=== PATIENT | female | born 1960 | race Caucasian/White ===

== ENCOUNTER 2016-08-28 21:33 | Emergency (ER) | payer OTHER ==
[2016-08-28 22:22] LABS: HEMOGLOBIN 13.8 gm/dl (12.3-15.3); RED BLOOD COUNT 4.78 M/UL (4.00-5.10); WHITE BLOOD COUNT 6.5 K/UL (4.5-11.0)
[2016-08-28 23:00] LABS: BUN/CREATININE RATIO 20 (0-10)
== END 2016-08-29 03:01 | disposition home or self-care (01) ==
LOC: ER1 21:33
PROVIDERS: Student in an Organized Health Care Education/Training Program
DX: I48.92 Unspecified atrial flutter (principal); E03.9 Hypothyroidism, unspecified; I10 Essential (primary) hypertension; E11.9 Type 2 diabetes mellitus without complications; E78.5 Hyperlipidemia, unspecified; I48.91 Unspecified atrial fibrillation; Z79.84 Long term (current) use of oral hypoglycemic drugs; Z87.891 Personal history of nicotine dependence
CPT/HCPCS: 36415; 71010; 80053; 82550; 82553; 83874; 84443; 84484; 85025; 85610; 85730; 93005; 96374; 99285

== ENCOUNTER → 2020-07-19 | Outpatient (CLI) | payer OTHER | LOC: EXRD 09:45 | DX: R94.5 Abnormal results of liver function studies (principal); R16.0 Hepatomegaly, not elsewhere classified | CPT/HCPCS: 76705 ==

== ENCOUNTER → 2020-08-26 | Outpatient (CLI) | payer OTHER ==
[2020-08-26 15:18] LABS: HEMOGLOBIN 13.8 gm/dl (12.3-15.3); RED BLOOD COUNT 4.69 M/UL (4.00-5.10); WHITE BLOOD COUNT 5.8 K/UL (4.5-11.0)
[2020-08-26 15:35] LABS: BUN/CREATININE RATIO 17 (0-10)
[2020-08-27 12:13] LABS: COMPLEMENT C3, SERUM 171 mg/dL (82-167); COMPLEMENT C4, SERUM 28 mg/dL (12-38); RHEUMATOID ARTHRITIS FACTOR <10.0 IU/mL (0.0-13.9)
[2020-08-30 15:10] LABS: ANTIMYELOPEROXIDASE (MPO) ABS <9.0 U/mL (0.0-9.0); ANTIPROTEINASE 3 (PR-3) ABS <3.5 U/mL (0.0-3.5); CYTOPLASMIC (C-ANCA) <1:20 titer (Neg:<1:20); PERINUCLEAR (P-ANCA) <1:20 titer (Neg:<1:20)
[2020-08-31 01:11] LABS: CCP ANTIBODIES IGG/IGA 8 units (0-19)
== END ==
LOC: LAB 13:27
PROVIDERS: Internal Medicine
DX: L65.9 Nonscarring hair loss, unspecified (principal); R76.8 Other specified abnormal immunological findings in serum; M25.50 Pain in unspecified joint; R53.82 Chronic fatigue, unspecified; D89.89 Other specified disorders involving the immune mechanism, not elsewhere classified; R70.0 Elevated erythrocyte sedimentation rate
CPT/HCPCS: 36415; 80053; 82607; 82746; 83520; 85025; 85652; 86140; 86160; 86200; 86256; 86431